=== PATIENT | female | born 1990 | race Caucasian/White ===

== ENCOUNTER 2022-04-12 05:34 | Inpatient (IN) ==
--- NOTE | 2022-04-05 12:33 | Anesthesiology Consultation ---
Date of Service April 05, 2022 Assessment & Plan (1) Encounter for pre-operative examination: - COVID screening: Per assessment on 04/05: No known COVID-19 positive contacts or current COVID-19 related symptoms. Travel screen negative. Patient vaccinated. At surgeon discretion if preop Covid testing being done. - Hx neuraxial anesthesia issues: Per pt, hx "urinary retention with spinal and spinal headache requiring blood patch" > Per review of [facility] records, anesthesia consultation from 11/03/21 indicates "Pt had cerclage under epidural analgesia on 10/31.. at [facility]. Apparently there were a couple of attempts at e pidural insertion, with at least one causing paresthesias down left leg.No mention of dural puncture.Pt developed PDPH at 48 hours, w/c is positional in nature. Worse upright,relieved when supine. Frontal in nature ,also at nape of neck. D/W pt. ,R vs B's of epidural blood patch. Pt understands and wishes to proceed. 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 History Surgery Operation Date: 04/12/22 07:30 Proposed Procedures p Section (Delivery of Baby Through Abdominal Incision) - Rubi Dahl MD, FACOG Height/Weight Height: 5 ft 3 in Weight: 67.585 kg Allergies Allergy/AdvReac Type Severity Reaction Status Date / Time vancomycin Allergy Mild red man Verified 04/05/22 11:21 syndrome acyclovir Allergy unknown Verified 04/05/22 11:21 Medications Home Medications Medication Instructions Recorded Confirmed Last Taken prenat.vits,valerie,ugs-neju-lkftp 1 tab PO QAM 09/09/20 04/05/22 Unknown aspirin 81 mg tablet,delayed 81 mg PO QAM 03/10/22 04/05/22 Unknown release (Adult Low Dose Aspirin) docusate sodium [Colace] 1 dose PO BID 03/10/22 04/05/22 Unknown Past Medical History Medical History Chronic hypertension follows with Dr. 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 hx spinal headache requiring blood patch History of cervical cerclage History of classical section 23 weeks History of colonoscopy History of esophagogastroduodenoscopy (EGD) Hx of biopsy left femur S/P hardware removal Left knee hardware S/P limb salvage procedures Left Femur. Hardware present. Spinal headache hx requiring blood patch procedure Social History Smoking Status: Never smoker Do You Dip or Chew Tobacco: No Hx Alcohol Use: No Hx Substance Use: No substance use type: does not use Lab Results Anesthesia Preop Results Results Anesthesia Widget: Hgb 11.6 g/dl (12.0-16.0) L 02/09/22 Hct 35.0 % (34.1-44.9) 02/09/22 Urine Color Yellow 02/09/22 Urine Appearance Clear (Clear) 02/09/22 Urine pH 8.0 (4.5-7.5) H 02/09/22 Urine Specific [place] 1.003 (1.000-1.030) 02/09/22 Urine Protein Negative (Negative) 02/09/22 Urine Glucose (UA) Negative (Negative) 02/09/22 Urine Ketones Negative (Negative) 02/09/22 Urine Blood Negative (Negative) 02/09/22 Urine Nitrite Negative (Negative) 02/09/22 Urine Bilirubin Negative (Negative) 02/09/22 Urine Urobilinogen Negative (Negative) 02/09/22 Urine Leukocyte Esterase Negative (Negative) 02/09/22 Testing Echocardiogram Date: 04/16/21 Normal biventricular systolic function. Trace mitral and pulmonic regurgitation. Trace to mild TR. EF 60-65%. No regional motion abnormality.
[2022-04-12] MEDS ORDERED: LACTATED RINGER'S 1,000 ML IV SCH ×3 (05:45→08:53)
[2022-04-12] MEDS ORDERED: ceFAZolin 2000MG 2,000 MG/15 ML SYR IV SCH (06:00)
[2022-04-12] MEDS ORDERED: CITRIC ACID/SODIUM CITRATE 15 ML UDC PO SCH (06:00)
[2022-04-12 06:12] LABS: Basophils # (auto) 0.08 K/uL (0-0.2); Basophils % (auto) 0.6 %; Eosinophils # (auto) 0.28 K/uL (0-0.50); Eosinophils % (auto) 2.1 %; Hematocrit (blood only) 32.3 % (37.0-47.0); Hemoglobin 10.9 g/dl (12.0-16.0); Immature Granulocytes # (auto) 0.48 K/uL (0.01-0.20); Immature Granulocytes % (auto) 3.6 %; Lymphocytes # (auto) 3.45 K/uL (1.2-3.4); Lymphocytes % (auto) 25.6 %; Mean Corpuscular Hemoglobin 27.6 pg (25.0-34.0); Mean Corpuscular Hgb Conc 33.7 g/dL (32.0-36.0); Mean Corpuscular Volume 81.8 fL (80.0-100.0); Mean Platelet Volume 9.3 fL (9.4-12.4); Monocytes # (auto) 1.52 K/uL (0.11-0.59); Monocytes % (auto) 11.3 %; Neutrophils # (auto) 7.69 K/uL (1.40-6.50); Neutrophils % (auto) 56.8 %; Platelet Count 311 K/uL (130-400); RDW Coefficient of Variation 14.2 % (11.5-14.5); RDW Standard Deviation 42.1 fL (36.4-46.3); Red Blood Count 3.95 M/uL (4.20-5.40)
[2022-04-12] MEDS ORDERED: PHENYLEPHRINE 100MCG/ML 5ML SYR ONE ×2 (07:00→08:24)
[2022-04-12] MEDS ORDERED: ONDANSETRON INJ 2 MG/ML 2 ML VIAL ONE (07:00)
[2022-04-12] MEDS ORDERED: OXYTOCIN 10 UNITS/ML 10ML VIAL ONE (07:00)
[2022-04-12] MEDS ORDERED: fentaNYL citrate 100 MCG/2 ML VIAL ONE (07:00)
[2022-04-12] MEDS ORDERED: MoRPHine SULFATE PF 1 MG/ML 10 ML AMP/VIAL ONE (07:00)
--- NOTE | 2022-04-12 07:25 | History & Physical Bridge Note ---
Date of Service April 12, 2022 History & Physical Bridge Note I have examined the patient, reviewed the History & Physical and in the interval since the performance of the History & Physical I have noted the following changes of clinical significance: no changes noted
[2022-04-12] MEDS ORDERED: NALOXONE HCL 0.4 MG/1 ML VIAL/CARP IV PRN (07:54)
[2022-04-12] MEDS ORDERED: NALOXONE HCL 1 MG in SODIUM CHLORIDE 0.9% 1000ML 1,000 ML IV PRN (07:54)
[2022-04-12] MEDS ORDERED: LACTATED RINGER'S 500 ML IV PRN (07:54)
[2022-04-12] MEDS ORDERED: ONDANSETRON INJ 2 MG/ML 2 ML VIAL IV PRN (07:54)
[2022-04-12] MEDS ORDERED: NALOXONE HCL 0.08 MG in SYRINGE 1.8 ML IV PRN (07:54)
[2022-04-12] MEDS ORDERED: MoRPHine SULFATE 2 MG/ML CARP IV PRN (07:54)
[2022-04-12] MEDS ORDERED: NALBUPHINE HCL INJ 10 MG/ML AMP IV PRN (07:54)
[2022-04-12] MEDS ORDERED: PROMETHAZINE HCL 6.25 MG in SODIUM CHLORIDE 0.9% 50 ML IV PRN (07:54)
[2022-04-12] MEDS ORDERED: MoRPHine SULFATE PF 1 MG/ML 10 ML AMP/VIAL INT SPINAL ONE (07:54)
[2022-04-12] MEDS ORDERED: diphenhydrAMINE 50 MG/ML VIAL IV PRN (07:54)
[2022-04-12] MEDS ORDERED: ePHEDrine sulfate 50 MG/ML AMP IV PRN (07:54)
[2022-04-12] MEDS ORDERED: NO NARCOTICS OR SEDATIVES SCH (08:00)
[2022-04-12] MEDS ORDERED: DC INTRASPINAL MORPHINE SCH (08:00)
[2022-04-12] MEDS ORDERED: SODIUM CHLORIDE 0.9% 1000ML 1,000 ML IV SCH (08:00)
--- NOTE | 2022-04-12 08:46 | Operative Report ---
PG Post Operative Report Pre & Post Diagnosis Operation Date: 04/12/22 07:30 Pre-Op Diagnosis: Previous Classical incision. 36 5/7 day. Clark cerclage. Post-Op Diagnosis: revious Classical incision. 36 5/7 day. Clark cerclage. I identified the patient and participated in the time-out.: Yes Procedure Operation Date: 04/12/22 07:30 Actual Procedures p Section (Delivery of Baby Through Abdominal Incision) .Removal of Clark cerclage. delivery of live female child at 0812. - Rubi Dahl MD, FACOG Surgeon Rubi Dahl MD, FACOG Link And Link Knitting Machine Operator Dr. Alvarez Estimated Blood Loss 500 Findings Consistent with Post-Op Diagnosis Specimens Cord blood Description of Procedure Regional anesthetic had been given by anesthesia patient was prepped and draped with a leftward tilt preoperative antibiotics had been given in appropriate timing by anesthesiology. Once the prep was allowed to fully dry timeout was performed. The initial procedure was done to remove the Clark cerclage legs were placed up in yellowfin stirrups bladder was drained with a Robison catheter speculum placed it was able to visualize the suture this was cut and the suture was fully removed both Dr. Alvarez and I checked afterwards and could palpate no further suture of the cervix was not dilated at this stage the legs were then placed down in the usual fashion and prepped for the section. Pickups with teeth were used to test the incision area was found to be adequate for incision as the patient did not feel sharp pain. Scalpel was used to make a Pfannenstiel incision on the lower abdomen. We then cut through the subcutaneous fat down to the level of the anterior rectus sheath fascia this was cut in the midline and then extended laterally with the curved Westbrook scissors. At this stage we then placed 2 Christian clamps on the anterior aspect of the fascia. Using the curved Westbrook's we are able to dissect the fascia superiorly away from the rectus muscles. Care was taken to maintain hemostasis. Christian clamps were then placed to the inferior aspect of the anterior sheath of the fascia. Fascia was then dissected away from the rectus muscles inferiorly towards the pubic bone. A Christian was then placed in the midline both inferiorly and superiorly. This was to allow exposure by retraction rectus muscles were in the midline with were then able to cut through the peritoneum and then enter the peritoneal cavity. Opening was enlarged to allow exposure of the peritoneal cavity both superiorly and inferiorly. Once adequate space was obtained a bladder retractor was placed to expose the lower segment Metzenbaums were used to dissect the bladder flap inferiorly away from the uterus. This was done sharply bladder retractor was then repositioned to expose the lower segment of the uterus Fresh scalpel was used to make a low transverse incision on the uterus. Uterus was then entered bluntly with the operators finger, membranes ruptured and the opening was enlarged using the operators fingers bluntly pulling superiorly and inferiorly to allow exposure. Baby was delivered by first flexion of the head elevation of the head out of the pelvis and then pressure by the psychiatric assistant on the maternal abdomen. Baby's head was then delivered mouth and then nares were suctioned and then using gentle traction the baby was fully delivered. Live vigorous infant. Fluid was clear cord clamped and cut cord gases obtained cord blood obtained baby handed to pediatrics. Placenta removed was removed with traction we ensure the entire placenta was removed with a moist lap sponge into the uterus Uterus was then exteriorized. IV Pitocin had been started by anesthesia tone improved there were no extensions the uterus was then closed using 0 Monocryl in a 2 layer closure the first layer closed in a running locked fashion from left to right and then a second closure from left to right in a running nonlocked fashion. At this stage hemostasis was excellent. Uterus was placed back in the peritoneal cavity with suction irrigation out and inspection of the uterus at this stage revealed excellent hemostasis Retractors were removed urine color was clear at this stage of the case we inspected the rectus muscles they were hemostatic fascia was closed with 0 Vicryl subcutaneous fat was irrigated and closed with 3-0 Vicryl skin closed with 4-0 subcuticular Monocryl Should be noted the adnexa were normal the uterus was not overly thin on entry I attest to the content of the Intraoperative Record and any orders documented therein. Any exceptions are noted below. OB Procedure Charges 16844 (removal of cerclage)
--- NOTE | 2022-04-12 08:52 | Anesthesiology Progress Note ---
Date of Service April 12, 2022 Anesthesia Post Procedure Vital Signs Vital Signs: Temp Pulse Resp BP Pulse Ox 04/12/22 05:50 18 04/12/22 08:46 66 112/68 100 04/12/22 07:00 16 04/12/22 07:00 36.5 C 16 04/12/22 07:04 78 111/72 04/12/22 05:59 36.9 C 89 18 106/70 Transfer of Care Handoff Completed per policy Notes Mental Status: alert / awake / arousable and participated in evaluation Patient Amnestic to Procedure: No Nausea / Vomiting: adequately controlled Pain: adequately controlled Airway Patency, RR, SpO2: stable & adequate BP & HR: stable & adequate Hydration State: stable & adequate Neuraxial Anesthesia: was administered and sensory block is resolving Anesthetic Complications: no major complications apparent and Pt Satisfied with anesthetic care
[2022-04-12] MEDS ORDERED: HYDROCORTISONE ACETATE 25 MG SUPP PR PRN (08:53)
[2022-04-12] MEDS ORDERED: BENZOCAINE 20% AER SPR 82.5 GM CAN EXT PRN (08:53)
[2022-04-12] MEDS ORDERED: SENNA 8.6 MG TAB PO PRN (08:53)
[2022-04-12] MEDS ORDERED: DIPHTHERIA/TETANUS/PERTUSSIS 0.5mL SYR/VIAL (Age 7+yrs) IM ONE (08:53)
[2022-04-12] MEDS ORDERED: MAGNESIUM HYDROXIDE SUSP 30 ML UDC PO PRN (08:53)
[2022-04-12] MEDS: KETOROLAC 30 MG/ML VIAL IV PRN ×2 (09:43→18:01)
[2022-04-12] MEDS: OXYTOCIN 20 UNITS in LACTATED RINGER'S 1,000 ML IV SCH ×2 (11:05→20:02)
[2022-04-12] MEDS: SIMETHICONE 80 MG CHEW PO SCH ×3 (17:58→20:41)
[2022-04-12] MEDS: DOCUSATE SODIUM 100 MG CAP PO SCH (20:41)
[2022-04-13] MEDS ORDERED: diphenhydrAMINE Capsule 25 MG CAP PO PRN (01:55)
[2022-04-13] MEDS ORDERED: ONDANSETRON INJ 2 MG/ML 2 ML VIAL IV PRN (01:55)
[2022-04-13] MEDS ORDERED: diphenhydrAMINE 50 MG/ML VIAL IV PRN (01:55)
[2022-04-13] MEDS ORDERED: PROMETHAZINE HCL 25 MG in SODIUM CHLORIDE 0.9% 50 ML IV PRN (01:55)
[2022-04-13] MEDS ORDERED: KETOROLAC 30 MG/ML VIAL IV PRN (01:55)
[2022-04-13] MEDS: IBUPROFEN 600 MG TAB PO PRN ×3 (04:25→16:05)
[2022-04-13] MEDS: oxyCODONE/ACETAMINOPHEN 5mg/325mg TAB PO PRN ×4 (04:26→20:39)
--- NOTE | 2022-04-13 06:21 | Obstetrical Progress Note ---
Date of Service <Jelena Ferrara - Last Filed: 04/13/22 08:31> April 13, 2022 Assessment & Plan <Jelena FerraraDO - Last Filed: 04/13/22 08:31> (1) Status post section: Robison is out, continue OOB and ambulation and then progress diet as tolerated <Rubi Dahl MD, FACOG - Last Filed: 04/14/22 09:11> (1) Status post section: Subjective <Jelena FerraraDO - Last Filed: 04/13/22 08:31> Dianna is a 32 y/o female who is POD #1 following delivery at 36 5/6 weeks. She reports feeling well overall this morning. Mild abdominal cramping, pain well managed on analgesics. Voiding. Tolerating meals overnight and able to ambulate some. Is passing gas and no bowel movement. Has some persistent lochia with some improvement this morning. Currently breast feeding. Review of Systems Denies fever, chills, sweats Denies shortness of breath, difficulty breathing, chest pain, palpitations, chest pressure. Denies breast pain. Denies dysuria. Denies headache or changes in vision. Physical Exam <Jelena FerraraDO - Last Filed: 04/13/22 08:31> General: Alert, oriented. No acute distress. Cardiac: Regular rate and rhythm, no murmurs/rubs/gallops. Respiratory: Clear to auscultation bilaterally a/p, no wheezes/rales/rhonchi. No increased work of breathing. Symmetrical chest rise. No respiratory distress. Abdomen: Soft, nontender, nondistended. Bowel sounds present. Uterus: Uterine fundus firm, palpable 2 cm below umbilicus. Surgical scar clean and healing well. Lower Extremities: No lower extremity edema or swelling. No deep calf pain. Ilana's negative bilaterally. Results & Data ([facility]) <Jelena FerraraDO - Last Filed: 04/13/22 08:31> Vital Signs (Past 12 Hours) Vital Signs Temp Pulse Resp BP Pulse Ox O2 Del Method 04/13/22 02:00 18 96 04/13/22 01:00 18 96 04/13/22 04:00 36.7 C 69 18 102/65 96 Room Air 04/13/22 00:00 18 96 04/12/22 23:00 18 96 04/12/22 22:00 18 96 04/12/22 21:00 18 95 04/12/22 20:00 18 96 04/12/22 23:00 36.6 C 72 18 99/60 L 96 Room Air 04/12/22 19:00 18 96 04/12/22 20:15 36.5 C 76 18 102/66 96 Room Air <Rubi Dahl MD, FACOG - Last Filed: 04/14/22 09:11> Co-Signing Physician Notes Resident Physician Supervision Note: I was present with Dr. Ferrara during the history and exam. I discussed the case with the resident and agree with the findings and plan as documented in the note. Any exceptions or clarifications are listed here: [None] Documented By: Rubi Dahl MD, FACOG Resident Activity Tracking <Jelena Ferrara DO - Last Filed: 04/13/22 08:31> Resident Involvement: Resident Care Provided Care Provided: OB Delivery (Post )
[2022-04-13 06:28] LABS: Basophils # (auto) 0.05 K/uL (0-0.2); Basophils % (auto) 0.3 %; Eosinophils # (auto) 0.53 K/uL (0-0.50); Eosinophils % (auto) 3.3 %; Hematocrit (blood only) 33.3 % (37.0-47.0); Hemoglobin 11.2 g/dl (12.0-16.0); Immature Granulocytes # (auto) 0.25 K/uL (0.01-0.20); Immature Granulocytes % (auto) 1.5 %; Lymphocytes # (auto) 2.96 K/uL (1.2-3.4); Lymphocytes % (auto) 18.2 %; Mean Corpuscular Hemoglobin 27.5 pg (25.0-34.0); Mean Corpuscular Hgb Conc 33.6 g/dL (32.0-36.0); Mean Corpuscular Volume 81.8 fL (80.0-100.0); Mean Platelet Volume 9.3 fL (9.4-12.4); Monocytes # (auto) 1.36 K/uL (0.11-0.59); Monocytes % (auto) 8.3 %; Neutrophils # (auto) 11.15 K/uL (1.40-6.50); Neutrophils % (auto) 68.4 %; Platelet Count 306 K/uL (130-400); RDW Coefficient of Variation 14.1 % (11.5-14.5); RDW Standard Deviation 41.6 fL (36.4-46.3); Red Blood Count 4.07 M/uL (4.20-5.40)
[2022-04-13] MEDS: FERROUS SULFATE 325 MG TAB PO SCH (08:42)
[2022-04-13] MEDS: SIMETHICONE 80 MG CHEW PO SCH ×4 (08:42→20:26)
[2022-04-13] MEDS: PRENATAL VITAMIN 1 TAB PO SCH (08:42)
[2022-04-13] MEDS: DOCUSATE SODIUM 100 MG CAP PO SCH ×2 (08:42→20:27)
[2022-04-13] MEDS ORDERED: bisacodyL 5 MG TABEC PO SCH (20:00)
[2022-04-14] MEDS: oxyCODONE/ACETAMINOPHEN 5mg/325mg TAB PO PRN ×5 (02:41→21:35)
[2022-04-14] MEDS: IBUPROFEN 600 MG TAB PO PRN ×5 (02:41→21:34)
--- NOTE | 2022-04-14 05:54 | Obstetrical Progress Note ---
Date of Service <Jelena Ferrara, DO - Last Filed: 04/14/22 07:23> April 14, 2022 Assessment & Plan <Jelena Ferrara DO - Last Filed: 04/14/22 07:23> (1) Status post section: Robison is out, continue OOB and ambulation and then progress diet as tolerated - 6 week post f/u <Glenda Pineda, DO - Last Filed: 04/14/22 07:28> (1) Status post section: Subjective <Jelena Ferrara, DO - Last Filed: 04/14/22 07:23> Dianna is a 32 y/o female who is POD #2 following delivery at 36 5/6 weeks. She reports feeling well overall this morning. Mild abdominal cramping, pain well managed on analgesics. Voiding. Tolerating meals overnight and able to ambulate some. Is passing gas and no bowel movement. Has some persistent lochia with some improvement this morning. Currently breast feeding. Review of Systems Denies fever, chills, sweats Denies shortness of breath, difficulty breathing, chest pain, palpitations, chest pressure. Denies breast pain. Denies dysuria. Denies headache or changes in vision. Physical Exam <Jelena Ferrara DO - Last Filed: 04/14/22 07:23> General: Alert, oriented. No acute distress. Cardiac: Regular rate and rhythm, no murmurs/rubs/gallops. Respiratory: Clear to auscultation bilaterally a/p, no wheezes/rales/rhonchi. No increased work of breathing. Symmetrical chest rise. No respiratory distress. Abdomen: Soft, nontender, nondistended. Bowel sounds present. Uterus: Uterine fundus firm, palpable 2 cm below umbilicus. Surgical scar clean and healing well. Lower Extremities: No lower extremity edema or swelling. No deep calf pain. Ilana's negative bilaterally. Results & Data ([facility]) <Jelena Ferrara, DO - Last Filed: 04/14/22 07:23> Vital Signs (Past 12 Hours) Vital Signs Temp Pulse Pulse Resp BP Pulse Ox O2 Del Method 04/13/22 23:14 36.6 C 62 18 110/73 02/07/23 19:15 36.5 C 75 16 119/80 96 Room Air <Glenda Pineda DO - Last Filed: 04/14/22 07:28> Co-Signing Physician Notes Resident Physician Supervision Note: I was present with Dr. Ferrara during the history and exam. I discussed the case with the resident and agree with the findings and plan as documented in the note. Any exceptions or clarifications are listed here: POD#2 doing well, plans for DC home tomorrow. Continue routine care. Documented By: Glenda Pineda DO Resident Activity Tracking <Jelena Ferrara, - Last Filed: 04/14/22 07:23> Resident Involvement: Resident Care Provided Care Provided: OB Delivery (post )
[2022-04-14 06:41] LABS: Hematocrit (blood only) 33.5 % (37.0-47.0); Hemoglobin 11.2 g/dl (12.0-16.0)
[2022-04-14] MEDS: SIMETHICONE 80 MG CHEW PO SCH ×4 (07:36→20:43)
[2022-04-14] MEDS: DOCUSATE SODIUM 100 MG CAP PO SCH ×2 (07:36→20:43)
[2022-04-14] MEDS: FERROUS SULFATE 325 MG TAB PO SCH (07:36)
[2022-04-14] MEDS: PRENATAL VITAMIN 1 TAB PO SCH (07:36)
[2022-04-14] MEDS ORDERED: bisacodyL 10 MG SUPP PR PRN (08:42)
[2022-04-15] MEDS: IBUPROFEN 600 MG TAB PO PRN ×3 (03:20→12:16)
[2022-04-15] MEDS: oxyCODONE/ACETAMINOPHEN 5mg/325mg TAB PO PRN ×3 (03:21→12:16)
--- NOTE | 2022-04-15 05:46 | Obstetrical Progress Note ---
Date of Service <Jelena FerraraDO - Last Filed: 04/15/22 06:51> April 15, 2022 Assessment & Plan <Jelena FerraraDO - Last Filed: 04/15/22 06:51> (1) Status post section: Robison is out, continue OOB and ambulation and then progress diet as tolerated - 6 week post f/u <Sadie Jaimes MD - Last Filed: 04/15/22 06:35> (1) Status post section: Subjective <Jelena FerraraDO - Last Filed: 04/15/22 06:51> Dianna is a 32 y/o female who is POD #3 following delivery at 36 5/6 weeks. She reports feeling well overall this morning. Mild abdominal cramping, pain well managed on analgesics. Notes pain at end of incisions B/L. Voiding. Tolerating meals overnight and able to ambulate some. Is passing gas and had a bowel movement. Has some persistent lochia with some improvement this morning. Currently breast feeding. Review of Systems Denies fever, chills, sweats Denies shortness of breath, difficulty breathing, chest pain, palpitations, chest pressure. Denies breast pain. Denies dysuria. Denies headache or changes in vision. Physical Exam <Jelena StevenLatoya JosiasDO - Last Filed: 04/15/22 06:51> General: Alert, oriented. No acute distress. Cardiac: Regular rate and rhythm, no murmurs/rubs/gallops. Respiratory: Clear to auscultation bilaterally a/p, no wheezes/rales/rhonchi. No increased work of breathing. Symmetrical chest rise. No respiratory distress. Abdomen: Soft, nontender, nondistended. Uterus: Uterine fundus firm, palpable 2 cm below umbilicus. Surgical scar clean and healing well. Lower Extremities: No lower extremity edema or swelling. No deep calf pain. Results & Data ([facility]) <Jelena FerraraDO - Last Filed: 04/15/22 06:51> Vital Signs (Past 12 Hours) Vital Signs Temp Pulse Resp BP O2 Del Method 04/15/22 03:05 36.4 C L 61 18 125/86 Room Air 04/14/22 20:30 36.4 C L 74 16 115/79 Room Air <Sadie Jaimes MD - Last Filed: 04/15/22 06:35> Co-Signing Physician Notes Resident Physician Supervision Note: I interviewed and examined the patient. Discussed with Dr. Ferrara and agree with findings and plan as documented in the note. Any exceptions or clarifications are listed here: [ ] Documented By: Sadie Jaimes MD, FACOG Resident Activity Tracking <Jelena Ferrara, - Last Filed: 04/15/22 06:51> Resident Involvement: Resident Care Provided Care Provided: OB Delivery (post )
[2022-04-15] MEDS: SIMETHICONE 80 MG CHEW PO SCH ×2 (08:04→12:16)
[2022-04-15] MEDS: PRENATAL VITAMIN 1 TAB PO SCH (08:05)
[2022-04-15] MEDS: DOCUSATE SODIUM 100 MG CAP PO SCH (08:05)
[2022-04-15] MEDS: FERROUS SULFATE 325 MG TAB PO SCH (08:05)
--- NOTE | 2022-04-16 08:07 | Discharge Summary ---
Date of Service April 16, 2022 Discharge Data Consultations 04/12/22 05:39 Consult Anesthesiology Stat Procedures Performed Operation Date: 04/12/22 07:30 Actual Procedures p Section (Delivery of Baby Through Abdominal Incision) .Removal of Clark cerclage. delivery of live female child at 0812. - Rubi Dahl MD, FACOG Hospital Course (1) Status post section: Robison is out, continue OOB and ambulation and then progress diet as tolerated - 6 week post f/u Supervising Physician Co-Signing Physician Notes Resident Physician Supervision Note: I interviewed and examined the patient. Discussed with Dr. Ferrara and agree with findings and plan as documented in the note. Any exceptions or clarifications are listed here: [ ] Documented By: Sadie Jaimes MD, [facility] [place] Coding Level of Care Code None Diagnoses Status post section Z98.891
== END 2022-04-15 12:46 | disposition home or self-care (01) | DRG 788 ==
LOC: 4S1 05:34 → EDSTATUS 07:30 → 4E2 12:02